=== PATIENT | male | born 1960 | race Caucasian/White ===

== ENCOUNTER 2020-07-19 16:40 | Emergency (ER) | payer OTHER ==
[2020-07-19 17:05] LABS: BASOPHIL 0.8 % (0-2); EOSINOPHIL 1.2 % (0-5); HCT 52.8 % (42.0-52.0); HGB 17.1 g/dl (13.2-18.0); LYMPHOCYTE 21.3 % (15-48); MCH 30.6 pg (25.0-31.0); MCHC 32.4 g/dL (32.0-36.0); MCV 94.6 fL (78.0-100.0); MONOCYTE 8.8 % (0-12); MPV 10.6 fL (6.0-9.5); NEUTROPHIL 67.4 % (41-80); NRBC 0; PLT 317 K/uL (150-400); RBC 5.58 M/uL (4.70-6.00); RDW 12.6 % (11.5-14.0); WBC 12.6 K/uL (4.0-10.5)
[2020-07-19 17:08] LABS: INR 0.91 (0.9-1.2); PROTHROMBIN TIME 11.6 SECONDS (11.4-13.6); PTT 30.1 SECONDS (22.2-34.7)
[2020-07-19 17:20] LABS: ALBUMIN 4.1 g/dL (3.4-5.0); BILIRUBIN - TOTAL 0.3 mg/dL (0.2-1.0); BUN/CREAT RATIO (CALC) 18.2 RATIO; CREATININE 0.88 mg/dL (0.67-1.17); GLOBULIN (CALCULATION) 3.8 g/dL; POTASSIUM 4.3 mmol/L (3.5-5.1); TOTAL PROTEIN 7.9 g/dL (6.4-8.2)
== END 2020-07-19 17:20 | disposition other institution (70) ==
LOC: FER 16:40
PROVIDERS: Emergency Medicine
DX: I21.19 ST elevation (STEMI) myocardial infarction involving other coronary artery of inferior wall (principal); I25.10 Atherosclerotic heart disease of native coronary artery without angina pectoris; E11.9 Type 2 diabetes mellitus without complications; E78.5 Hyperlipidemia, unspecified; I10 Essential (primary) hypertension; Z95.1 Presence of aortocoronary bypass graft; Z95.5 Presence of coronary angioplasty implant and graft; Z79.82 Long term (current) use of aspirin; Z20.822 Contact with and (suspected) exposure to COVID-19
CPT/HCPCS: 36415; 71045; 80053; 84484; 85025; 85610; 85730; 93005; J1644; U0002

== ENCOUNTER 2021-10-14 09:39 | Emergency (ER) | payer OTHER ==
[~2021-10-14] VITALS: Ht 162.6 cm; Wt 72.6 kg
[2021-10-14 10:55] LABS: BASOPHIL 0.6 % (0-2); HCT 48.1 % (42.0-52.0); HGB 15.6 g/dl (13.2-18.0); LYMPHOCYTE 16.3 % (15-48); MCH 30.5 pg (25.0-31.0); MCHC 32.4 g/dL (32.0-36.0); MCV 94.1 fL (78.0-100.0); MPV 10.6 fL (6.0-9.5); NEUTROPHIL 71.8 % (41-80); NRBC 0; PLT 171 K/uL (150-400); RBC 5.11 M/uL (4.70-6.00); RDW 13.3 % (11.5-14.0)
[2021-10-14 11:15] LABS: ALBUMIN 3.3 g/dL (3.4-5.0); BILIRUBIN - TOTAL 0.8 mg/dL (0.2-1.0); C-REACTIVE PROTEIN 3.1 mg/dL (<=0.90); CREATININE 0.77 mg/dL (0.67-1.17); MAGNESIUM 2.1 mg/dL (1.8-2.4); POTASSIUM 3.7 mmol/L (3.5-5.1); TOTAL PROTEIN 7.3 g/dL (6.4-8.2)
[2021-10-14 11:31] LABS: CORONAVIRUS 2019 SARS-COV-2 NEGATIVE (NEGATIVE); INFLUENZA A NAA POSITIVE (NEGATIVE)
[2021-10-14] MEDS ORDERED: MUCINEX600 MG PO (12:55)
[2021-10-14] MEDS ORDERED: VIBRAMYCIN100 MG PO (12:55)
[2021-10-14] MEDS ORDERED: TAMIFLU75 MG PO (12:55)
== END 2021-10-14 13:15 | disposition home or self-care (01) ==
LOC: FER 09:39
PROVIDERS: Emergency Medicine
DX: R05.3 Chronic cough (principal); I10 Essential (primary) hypertension; E11.9 Type 2 diabetes mellitus without complications; F17.220 Nicotine dependence, chewing tobacco, uncomplicated; Z88.0 Allergy status to penicillin; Z88.5 Allergy status to narcotic agent; Z20.822 Contact with and (suspected) exposure to COVID-19
CPT/HCPCS: 36415; 36600; 71250; 80053; 82803; 83735; 83880; 84145; 85025; 86140; 93005; U0002